=== PATIENT | male | born 1975 | race Caucasian/White ===

== ENCOUNTER 2016-12-01 22:36 | Emergency (ER) | payer OTHER ==
[~2016-12-01] VITALS: Ht 167.6 cm; Wt 65.9 kg
[2016-12-01 22:41] VITALS: BP 161/103; PULSE 76; RESP 18; O2SAT 97
--- NOTE | 2016-12-01 23:40 | ED.REPORT ---
HPI-General Illness Date of Service Dec 01, 2016 ED Provider: Ceasar Wen MD Pt is a 41 year old male with a hx of EtOH abuse presenting to the ED requesting to go to [facility]. He reports that he has a bed at [facility] at 0300. Pt states that he last drank alcohol at 1700 today. Pt got out of treatment in June from [facility] and was sober for 5 months. He has been drinking alcohol everyday for the last month. He denies any symptoms at this time. Nursing Notes Stated Complaint: DETOX,HAS BED AT [facility] @3 Chief Complaint: Substance Abuse Nursing Notes Reviewed: Yes Allergies: Coded Allergies: azithromycin (Verified Allergy, Mild, hives, 12/01/16) No Known Allergies (Unverified Allergy, Unknown, 11/25/13) Miscellaneous Medications ([none]) General Time Seen by MD: 23:37 Chief Complaint Other (EtOH abuse) Hx Obtained From: Patient Arrived By: Walk-in Sudden in Onset?: No Onset Occurred: Onset unknown Symptom Duration: Since onset Severity: Current: No pain currently Severity: Maximum: No pain Recent Healthcare: No recent doctor visit, No recent hospitalization Similar Sx Previous: Yes Past Medical History Past Medical History Hx of alcohol abuse Past Surgical History denies Smoking History Unknown if Ever Smoker Social History Alcohol Use: >5 per day Drug Use: THC Ambulatory Status Independent Review of Systems Full Review of Systems Constitutional: Denies: Weakness - generalized Respiratory: Denies: Shortness of breath Cardiovascular: Denies: Chest pain GI: Denies: Abdominal pain, Vomiting Complete sys rev & neg: except as marked. Physical Exam Vital Signs Vital Signs Date Time Temp Pulse Resp B/P Pulse Ox O2 Delivery O2 Flow Rate FiO2 12/02/16 02:38 36.4 71 18 137/80 100 Room Air 12/01/16 22:41 36.7 76 18 161/103 97 Room Air Initial VS: Reviewed, Vital signs abnormal Head / Eyes: Atraumatic, Normocephalic, PERRL ENT: Mucous membranes moist, Conjunctiva normal, No scleral icterus Neck: Supple, Non-tender, Full range of motion Respiratory: Breath sounds normal, Clear to auscultation, No respiratory distress Cardiovascular: Regular rate & rhythm, Heart sounds normal, Intact distal pulses Abdomen / GI: Soft, Non-tender (No liver tenderness), No guarding, No rebound, No distention Extremities: Vascular intact, Neuro intact, No swelling, No tenderness Skin: Warm, Dry, No cyanosis Neurologic: Alert, Oriented, Nonfocal Psychiatric: Mood/affect normal, Behavior normal, Normal thought content General/Constitutional: Awake, Alert, No acute distress Smells of EtOH. Not overtly intoxicated. No tremulousness. Interpretation & Diagnostics Lab Results Interpretation Result Diagram: 12/02/16 0010 12/02/16 0010 Test 12/02/16 00:10 12/02/16 00:16 White Blood Count 10.0th/mm3 (3.8-10.1) Red Blood Count 4.46mil/mm3 (4.40-5.80) Hemoglobin 14.7g/dL (13.8-17.2) Hematocrit 41.5% (41.0-50.0) Mean Corpuscular Volume 93.0fL (81-100) Mean Corpuscular Hemoglobin 33.0pg (27.0-35.0) Mean Corpuscular Hemoglobin Concent 35.4% (32.0-37.0) Red Cell Distribution Width 15.6% (12.3-15.4) Platelet Count 202bil/L (150-400) Neutrophils (%) (Auto) 70.0% (40-74) Lymphocytes (%) (Auto) 21.6% (14-46) Monocytes (%) (Auto) 7.0% (4-12) Eosinophils (%) (Auto) 0.8% (0-5) Basophils (%) (Auto) 0.3% (0-3) Prothrombin Time 9.6sec (8.1-12.5) Prothromb Time International Ratio 0.90ratio Sodium Level 138mEq/L (134-144) Potassium Level 3.8mEq/L (3.5-5.2) Chloride Level 97mEq/L (97-108) Carbon Dioxide Level 24mmol/L (18-29) Blood Urea Nitrogen 6mg/dL (6-24) Creatinine 0.71mg/dL (0.76-1.27) Estimat Glomerular Filtration Rate 131mL/min (>59) Glucose Level 82mg/dL (60-99) Calcium Level 8.8mg/dL (8.5-10.1) Magnesium Level 1.8mg/dL (1.6-2.6) Total Bilirubin 0.4mg/dL (0.0-1.2) Aspartate Amino Transf (AST/SGOT) 65U/L (0-50) Alanine Aminotransferase (ALT/SGPT) 51U/L (0-44) Alkaline Phosphatase 74U/L (25-150) Total Protein 7.3g/dL (6.4-8.4) Albumin 4.3g/dL (3.4-5.0) Lipase 37U/L (13-60) Hold Urine Received (Received) Lab values outside NL range: no clinical significance. Lab Results Interpretation: Alcohol level 0.116, mild liver enzyme elevation Re-Eval/Medical Decision Med Decision/Clinical Course 41-year-old male with alcohol dependence who desires detox. Mild alcoholic hepatitis. Referred to detox with Ativan taper. Time of Eval: 02:01 Patient Status: Condition improved Re-Evaluation/Progress Note: Discussed plan for discharge. Pt understands and agrees. Counseled Regarding: Diagnosis, Lab results, Need for follow-up, When/why to return to ED Discharge & Departure Primary Impression: Alcohol abuse Disposition: Home Discharge Condition All VS Reviewed: Yes Condition: Improved Patient Instructions: Alcohol Withdrawal (ED) Additional Instructions: You have mild inflammation of the liver enzymes indicating damage from the alcohol. [facility] directly to [facility]. You have been provided a tapering dose of lorazepam to help with medical complications/ withdrawal. Do not drink alcohol. Referrals: Kamala Galeano (PCP) Scribe Attestation Portions of this note were transcribed by Patti Ocasio. I, Dr. Wen personally performed the history, physical exam and medical decision-making; I reviewed and confirmed the accuracy of the information in the transcribed note. Signed by: Juvencio Huang, 12/02/2016 and 0230. copies to: Kamala Galeano Howard L MD Dec 01, 2016 23:40 PATTI OCASIO Dec 01, 2016 23:49
[2016-12-01] MEDS ORDERED: 0.9% Sodium Chloride 1,000 ML IV ONE (23:41)
[2016-12-02 00:24] LABS: BASOPHILS % (AUTO) 0.3 % (0-3); EOSINOPHILS % (AUTO) 0.8 % (0-5); Platelet Count 202 bil/L (150-400)
[2016-12-02 00:44] LABS: INR 0.9 ratio
[2016-12-02 00:49] LABS: Magnesium 1.8 mg/dL (1.6-2.6)
[2016-12-02] MEDS ORDERED: _LORazepam 2 MG Tablet PO SCH (01:20)
[2016-12-02 02:38] VITALS: BP 137/80; PULSE 71; RESP 18; O2SAT 100
== END 2016-12-02 02:39 | disposition home or self-care (01) ==
LOC: SED 22:36
DX: F10.129 Alcohol abuse with intoxication, unspecified (principal); Z88.1 Allergy status to other antibiotic agents
CPT/HCPCS: 36415; 80053; 81002; 82075; 83690; 83735; 85025; 85610; 96360; 99284; J7030